=== PATIENT | male | born 1965 | race African-American/Black ===

== ENCOUNTER 2019-08-03 13:28 | Emergency (ER) | payer MEDICAID ==
[~2019-08-03] VITALS: Ht 182.9 cm; Wt 117.0 kg
[2019-08-03 13:43] VITALS: BP 141/89
[2019-08-03] MEDS ORDERED: KETOROLAC 60MG/2ML VIAL IM ONE (14:30)
== END 2019-08-03 16:02 | disposition home or self-care (01) ==
LOC: ER 13:28
DX: S82.892A Other fracture of left lower leg, initial encounter for closed fracture (principal); W50.2XXA Accidental twist by another person, initial encounter; Y93.89 Activity, other specified; Y92.89 Other specified places as the place of occurrence of the external cause; Y99.8 Other external cause status; I10 Essential (primary) hypertension
CPT/HCPCS: 73610; 99283